=== PATIENT | female | born 1985 | race Caucasian/White ===

== ENCOUNTER → 2017-08-21 | Day surgery (SDC) | payer BC ==
--- NOTE | 2017-08-27 09:48 | PATH ---
Surgical Pathology Report Patient Name: AARON ANDERSON [facility]. Rec. #: [id number] /Age/Gender: 1985 (Age: 31) / F Account: [id number] Location: Taken: 08/21/2017 Received: 08/21/2017 Reported: 08/27/2017 Physicians: Leonela Dumont M.D. Specimen(s) Received A: LEFT BREAST SITE #1 5:00 6 CM FN CORE BIOPSY B: LEFT AXILLA LYMPH NODE SITE #2 CORE BIOPSY C: LEFT BREAST SITE #3 8:00 4CM FN CORE BIOPSY Clinical History Ultrasound findings: Highly suspicious/malignant Final Diagnosis A. breast, left, 5:00, 6 cm fn (site #1), core biopsy: Ductal carcinoma in situ (DCIS), solid type, high nuclear grade with moderate necrosis aND few associated calcifications. (See note) Note: Myoepithelial immunohistochemical markers (SMM-HC & p63, performed at [facility]) demonstrate the presence of myoepithelial cells in the foci of DCIS. No definitive evidence of microinvasion/invasion in this material. These findings support the diagnosis. b. lymph node, left axilla (site #2), core biopsy: Poorly differentiated invasive ductal carcinoma, compatible with breast origin. (See note) Note: The tissue cores are comprised almost entirely of poorly differentiated carcinoma; no lymph node tissue is identified. Immunohistochemical studies performed at [facility] show strong positivity for ER and MS. Immunohistochemical studies performed at [place], [place] ([id number]) show strong positivity for JUAN LUIS-3 and mammaglobin with focal patchy positivity for GCDFP. Results of ER and MS studies performed on block B at [facility] are as follows: ER (clone [id number] mouse monoclonal antibody by [employer]): > 95 % nuclear staining with strong intensity (Positive). MS (clone16 mouse monoclonal antibody by [employer]): > 95 % nuclear staining with strong intensity (Positive). Results of Her2 (IHC) & Ki-67 studies performed on block B at [place], [place] ([id number]) are as follows: Her2 IHC (EP3 from [employer], formerly known as [id number], using [employer] Polymer Refine detection kit): 3+ (Positive). Ki-67: ~75% (High proliferative index). Positive and negative controls (internal if applicable) show appropriate results. Formalin fixation and cold ischemic times are within current ASCO/CAP recommendations for ER, MS and Her2 testing. C. BREAST, LEFT, 8:00, 4 CM FN ( SITE #3), CORE BIOPSY: INTRADUCTAL PAPILLOMA WITH FLORID EPITHELIAL HYPERPLASIA. PROLIFERATIVE FIBROCYSTIC CHANGES INCLUDING USUAL DUCTAL HYPERPLASIA (UDH), APOCRINE METAPLASIA AND STROMAL FIBROSIS. Comment: Case discussed with Dr. Cool on 08/22/17 and 08/25/17. Electronically Signed Jacqueline Sifuentes M.D. Gross Description A. Received in formalin labeled "site #1 left breast 5:00, 6 cmfn," are 8 martin-yellow, cylindrical portions of fibroadipose tissue ranging from 0.4-1.4 cm in length and averaging 0.3 cm in diameter. The specimens are submitted in toto in one cassette. B. Received in formalin labeled " left axillary lymph node site #2," are 3 martin, cylindrical portions of fibroadipose tissue ranging from 1.0-1.6 cm in length and averaging 0.1 cm in diameter. The specimens are submitted in toto in one cassette. C. Received in formalin labeled "left breast 8:00, 4 cmfn site #3," is a 1.0 x 0.7 x 0.2 cm aggregate of martin-yellow fragments of fibroadipose tissue. The formalin is filtered and the specimen is entirely submitted in one cassette. Time to formalin fixation: Between 2-5 minutes Total formalin fixation time: Approximately 6 hours. 08/21/2017 [facility]08/21/2017
== END | disposition home or self-care (01) ==
LOC: FRADUS-SUR 10:43
PROVIDERS: ATTEND Family Medicine
PROC: 0HBU3ZX Excision of Left Breast, Percutaneous Approach, Diagnostic (ICD-10-PCS; principal; 2017-08-21)
PROC: 07B63ZX Excision of Left Axillary Lymphatic, Percutaneous Approach, Diagnostic (ICD-10-PCS; 2017-08-21)
PROC: BH47ZZZ Ultrasonography of Upper Extremity (ICD-10-PCS; 2017-08-21)
DX: D05.12 Intraductal carcinoma in situ of left breast (principal); C77.3 Secondary and unspecified malignant neoplasm of axilla and upper limb lymph nodes; N63.23 Unspecified lump in the left breast, lower outer quadrant; N63.24 Unspecified lump in the left breast, lower inner quadrant; R59.9 Enlarged lymph nodes, unspecified
CPT/HCPCS: 19083; 19084; 76942-TC; 77065-TC; 88305-TC; 88342-TC